=== PATIENT | male | born 1970 | race Caucasian/White ===

== ENCOUNTER 2021-07-18 09:50 | Emergency (ER) | payer MEDICARE, MEDICAID ==
--- NOTE | 2021-07-18 10:55 | EDM.PDOC ---
ED HPI GENERAL MEDICAL PROBLEM - General Chief Complaint: Back Pain or Injury Stated Complaint: R SIDE RIBS HURT Time Seen by Provider: 07/18/21 10:30 Source of Information: Reports: Patient History Limitations: Reports: No Limitations - History of Present Illness INITIAL COMMENTS - FREE TEXT/NARRATIVE: 51-year-old male with right-sided chest and flank pain since falling 4 days ago. He was seen in [place] ER, according to the patient they did a chest x-ray but they never told him what they found, they just "rushed him out because they were so busy". He called his primary doctor today and he recommended he come up to [place] to be seen. He has chronic shortness of breath, nothing new. No other traumatic injury. He has chronic knee pain for which he is on gabapentin. Onset: Sudden Duration: Day(s): (4 days ago) Location: Reports: Back (Right flank area) Improves with: Reports: Rest Worsens with: Reports: Breathing, Movement Associated Symptoms: Reports: Shortness of Breath (Shortness of breath is chronic and stable). Denies: Fever/Chills, Headaches, Nausea/Vomiting right rib Pain Score (Numeric/FACES): 8 - Related Data Allergies Allergy/AdvReac Type Severity Reaction Status Date / Time No Known Allergies Allergy Verified 07/18/21 10:03 Home Meds: Home Meds Benztropine [Cogentin] 1 mg PO BEDTIME 07/18/21 [History] Gabapentin [Neurontin] 800 mg PO TID 07/18/21 [History] Mirtazapine 30 mg PO BEDTIME 07/18/21 [History] Prazosin [Minpress] 10 mg PO BEDTIME 07/18/21 [History] QUEtiapine Fumarate [Seroquel] 100 mg PO BEDTIME 07/18/21 [History] carBAMazepine [Carbamazepine] 200 mg PO TID 07/18/21 [History] haloperidoL [Haldol] 1 mg PO TID 07/18/21 [History] traZODone 150 mg PO BEDTIME 07/18/21 [History] Past Medical History Respiratory History: Reports: Asthma, Bronchitis, Recurrent Psychiatric History: Reports: Anxiety, Bipolar, Schizophrenia - Infectious Disease History Infectious Disease History: Reports: Chicken Pox - Past Surgical History Musculoskeletal Surgical History: Reports: Other (See Below) Other Musculoskeletal Surgeries/Procedures:: left knee and right foot surgery Social & Family History - Tobacco Use Tobacco Use Status *Q: Current Every Day Tobacco User Years of Tobacco use: 30 Packs/Tins Daily: 1 - Recreational Drug Use Recreational Drug Use: No ED ROS GENERAL - Review of Systems Review Of Systems: See Below Constitutional: Denies: Fever, Chills HEENT: Denies: Throat Pain, Vision Change Respiratory: Reports: Shortness of Breath. Denies: Cough Cardiovascular: Reports: Chest Pain (Pleuritic pain right back) GI/Abdominal: Denies: Abdominal Pain, Nausea, Vomiting Skin: Denies: Bruising Neurological: Denies: Headache ED EXAM, GENERAL - Physical Exam Exam: See Below Exam Limited By: No Limitations General Appearance: Alert, No Apparent Distress Eye Exam: Bilateral Eye: Normal Inspection Head: Atraumatic Neck: Supple, Non-Tender Respiratory/Chest: Other (Patient has some chronic sounding diffuse rales bilaterally. Chest wall is very tender over the right flank, no crepitus) Cardiovascular: Regular Rate, Rhythm GI/Abdominal: Normal Bowel Sounds, Soft, Non-Tender Extremities: No: Pedal Edema Neurological: Alert, Oriented Psychiatric: Normal Affect, Normal Mood Course - Vital Signs Last Recorded V/S: Last Vital Signs Temp 97.3 F 07/18/21 10:05 Pulse 78 07/18/21 10:05 Resp 16 07/18/21 10:05 BP 142/73 H 07/18/21 10:05 Pulse Ox 92 L 07/18/21 10:05 - Re-Assessments/Exams Free Text/Narrative Re-Assessment/Exam: 07/18/21 12:[address] without contrast was done which showed a 9 and 10th nondisplaced rib fracture on the right side. Underlying lung showed chronic changes. Patient was reassured that this should improve, he can increase activity as tolerated. Continue with anti-inflammatories such as ibuprofen, he was given 10 hydrocodone to use for extra pain control. A [employer] search was done and he has not had narcotics in the last 8 months. I also recommended a topical Lidoderm patch may be beneficial. Departure - Departure Time of Disposition: 12:39 Disposition: Home, Self-Care 01 Clinical Impression: Closed rib fracture Qualifiers: Encounter type: initial encounter Rib fracture type: multiple ribs Laterality: right Qualified Code(s): S22.41XA - Multiple fractures of ribs, right side, initial encounter for closed fracture - Discharge Information Instructions: Rib Fracture Referrals: PCP,None [Primary Care Provider] - Forms: ED Department Discharge Care Plan Goals: Continue with a regular dose of ibuprofen, your gabapentin, and take 1 stronger pain pill as directed if needed every 4 hours. Increase activity as tolerated and recheck next week if not improving satisfactorily. Sepsis Event Note (ED) - Evaluation Sepsis Screening Result: No Definite Risk - Focused Exam Vital Signs: Vital Signs Temp Pulse Resp BP Pulse Ox 07/18/21 10:05 97.3 F 78 16 142/73 H 92 L
--- NOTE | 2021-07-18 11:44 | CT ---
Chest wo Cont CLINICAL HISTORY: Right flank, TECHNIQUE: Thin section axial contiguous tomographic sections were taken through the chest without contrast administration. Coronal and sagittal images were reconstructed. Auto dosage reduction and iterative reconstruction techniques employed. FINDINGS: There are fractures of the right posterior lateral 10th and 11th ribs. There is some adjacent to the pleural thickening and/or minimal pleural fluid. Lungs are generally hyperaerated. There are scattered nodular foci in the right upper and lower lobes. There is some tree-in-bud formation and septal thickening. There is mild bronchiectasis and some diffuse bronchial thickening greater on the right. No mediastinal mass or lymphadenopathy is identified. IMPRESSION: Fractures of the right posterior lateral 10th and 11th ribs with some minimal regional pleural reaction Diffuse chronic lung changes bilaterally Micronodularity and tree-in-bud formation involving the right lung diffusely with bronchiectasis and bronchial thickening. This can represent chronic infection or atypical infections or chronic bronchiolitis. If clinically relevant high-resolution CT chest recommended on a nonemergent basis
== END 2021-07-18 12:40 | disposition home or self-care (01) ==
LOC: JP.ED 09:50
DX: S22.41XA Multiple fractures of ribs, right side, initial encounter for closed fracture (principal); Z72.0 Tobacco use; W18.09XA Striking against other object with subsequent fall, initial encounter
CPT/HCPCS: 71250; 71250-26; 99283-25

== ENCOUNTER 2022-12-07 08:21 | Day surgery (SDC) | payer MEDICARE, MEDICAID ==
[2022-12-07] MEDS ORDERED: fentaNYL 50 MCG/ML SDV ONE (08:27)
[2022-12-07] MEDS ORDERED: Midazolam 1 MG/ML 2 ML SDV ONE (08:27)
[2022-12-07] MEDS ORDERED: Propofol 200 MG/20 ML SDV ONE ×2 (08:27→09:48)
[2022-12-07] MEDS ORDERED: Lactated Ringers 1,000 ML IV SCH (08:45)
== END 2022-12-07 10:49 | disposition home or self-care (01) ==
LOC: JP.SDS 08:21
PROVIDERS: ATTEND Student in an Organized Health Care Education/Training Program
DX: K52.9 Noninfective gastroenteritis and colitis, unspecified (principal); K64.4 Residual hemorrhoidal skin tags; J44.9 Chronic obstructive pulmonary disease, unspecified; F17.200 Nicotine dependence, unspecified, uncomplicated; K21.9 Gastro-esophageal reflux disease without esophagitis; E78.00 Pure hypercholesterolemia, unspecified; F20.9 Schizophrenia, unspecified; Z79.899 Other long term (current) drug therapy
CPT/HCPCS: 45380; J2250; J2704; J3010; J7120

== ENCOUNTER 2023-08-05 20:06 | Emergency (ER) | payer MEDICARE, MEDICAID ==
[2023-08-05] MEDS ORDERED: predniSONE 20 MG Tab PO ONE (21:00)
[2023-08-05] MEDS ORDERED: Albuterol/Ipratropium 3.0-0.5 MG/3 ML Neb Soln NEB ONE (21:00)
[2023-08-05 21:12] LABS: BASE EXCESS VENOUS 2.9 mm/L; BASOPHILS ABSOLUTE AUTO 0.05 K/uL (0.00-0.10); BASOPHILS PERCENT AUTO 0.7 % (0.1-1.3); BICARBONATE,VENOUS 27.4 mmol/L; CARBOXYHEMOGLOBIN 6.3 % (0.0-1.6); EOSINOPHILS ABSOLUTE AUTO 0.19 K/uL (0.00-0.40); EOSINOPHILS PERCENT AUTO 2.8 % (0.0-5.4); HEMATOCRIT 33.1 % (38.4-49.7); HEMOGLOBIN 11.8 g/dL (12.9-16.9); IMMATURE GRAN ABSOLUTE AUTO 0.03 K/uL (0.00-0.23); IMMATURE GRAN PERCENT AUTO 0.4 % (0.0-0.7); LYMPHOCYTES ABSOLUTE AUTO 1.39 K/uL (0.8-3.3); LYMPHOCYTES PERCENT AUTO 20.8 % (11.4-47.7); MEAN CORPUSCULAR HEMOGLOBIN 33.5 pg (31.6-35.5); MEAN CORPUSCULAR HGB CONC 35.6 g/dL (31.6-35.5); METHEMOGLOBIN 0.9 %; MONOCYTES ABSOLUTE AUTO 0.62 K/uL (0.20-0.90); MONOCYTES PERCENT AUTO 9.3 % (3.3-12.6); NEUTROPHILS ABSOLUTE AUTO 4.39 K/uL (1.0-7.6); O2 SATURATION VENOUS 72.1; OXYHEMOGLOBIN 66.9 %; PCO2 VENOUS 44.1 mm/Hg; PH,VENOUS 7.411 (7.350-7.450); PLATELET COUNT,PLT 336 K/uL (130-375); PO2 VENOUS 40.6 mm/Hg; RED BLOOD CELL COUNT 3.52 M/uL (4.14-5.76); TOTAL HEMOGLOBIN 12.1 g/dL (13.5-18.0); WHITE BLOOD CELL COUNT,WBC 6.7 K/uL (3.2-11.0)
[2023-08-05 21:29] LABS: CALCIUM 9.2 mg/dL (8.5-10.1); EST CRCL DRUG DOSING (CG) 83.47 mL/min
[2023-08-05] MEDS ORDERED: Cefdinir 300 MG Cap PO ONE (21:32)
== END 2023-08-05 22:08 | disposition home or self-care (01) ==
LOC: JP.ED 20:06
DX: J44.1 Chronic obstructive pulmonary disease with (acute) exacerbation (principal); R09.02 Hypoxemia; E87.0 Hyperosmolality and hypernatremia; F17.210 Nicotine dependence, cigarettes, uncomplicated; Z79.899 Other long term (current) drug therapy
CPT/HCPCS: 36415; 71045; 80048; 82803; 83735; 85025; 93005; 94640; 99285; A9270; J7512; U0002; 93010; 99284; J7620

== ENCOUNTER 2023-11-24 09:42 | Inpatient (IN) | payer MEDICARE, MEDICAID ==
[2023-11-24 11:05] LABS: CORONAVIRUS COVID-19 NAA NEGATIVE (NEGATIVE); INFLUENZA A NAA NEGATIVE (NEGATIVE); INFLUENZA B NAA NEGATIVE (NEGATIVE); RESPIRATORY SYNCYTIAL VIR NAA NEGATIVE (NEGATIVE)
[2023-11-24 11:31] LABS: HEMOGLOBIN 11.8 g/dL (12.9-16.9); MEAN CORPUSCULAR HEMOGLOBIN 32.5 pg (31.6-35.5); MEAN CORPUSCULAR HGB CONC 35.8 g/dL (31.6-35.5); MEAN CORPUSCULAR VOLUME 90.9 fL (81.4-99.0); PLATELET COUNT,PLT 210 K/uL (130-375); RED BLOOD CELL COUNT 3.63 M/uL (4.14-5.76); WHITE BLOOD CELL COUNT,WBC 5.1 K/uL (3.2-11.0)
[2023-11-24 11:49] LABS: CALCIUM 8.9 mg/dL (8.5-10.1); CREATININE 0.8 mg/dL (0.8-1.3); EST CRCL DRUG DOSING (CG) 104.33 mL/min; POTASSIUM,K 3.9 mmol/L (3.6-5.2)
[2023-11-24 11:50] LABS: ANION GAP 10.9 mmol/L (5.0-14.0)
[2023-11-24 11:52] LABS: ALBUMIN 2.7 g/dL (3.4-5.0); MAGNESIUM 1.7 mg/dL (1.8-2.4); PHOSPHORUS 3.1 mg/dL (2.5-4.9)
[2023-11-24 12:03] LABS: BAND ABSOLUTE MAN 0.31 K/uL; BAND PERCENT MAN 6 % (5-11); LYMPHOCYTES ABSOLUTE MAN 1.68 K/uL (0.8-3.3); LYMPHOCYTES PERCENT MAN 33 % (24-44); MONOCYTES ABSOLUTE MAN 0.31 K/uL (0.20-0.90); MONOCYTES PERCENT MAN 6 % (2-6); NEUTROPHILS ABSOLUTE MAN 2.81 K/uL (1.0-7.6); SEG NEUTROPHILS PERCENT MAN 55 % (36-66)
[2023-11-24] MEDS ORDERED: predniSONE 20 MG Tab PO ONE (12:15)
[2023-11-24] MEDS ORDERED: Doxycycline 100 MG Cap PO ONE (12:16)
[2023-11-24] MEDS ORDERED: carBAMazepine 200 MG Tab PO ONE ×2 (14:20→15:30)
[2023-11-24] MEDS ORDERED: Gabapentin 400 MG Cap PO ONE (14:30)
[2023-11-24] MEDS ORDERED: Haloperidol 5 MG Tab PO ONE (14:30)
[2023-11-24] MEDS ORDERED: Ondansetron 4 MG/2 ML SDV IV PRN (14:36)
[2023-11-24] MEDS ORDERED: Sennosides/Docusate Sodium 50-8.6 MG Tab PO PRN (14:36)
[2023-11-24] MEDS ORDERED: Magnesium Hydroxide 400 MG/5 ML Susp 30 ML Cup PO PRN (14:36)
[2023-11-24] MEDS ORDERED: Acetaminophen 500 MG Tab PO PRN (14:36)
[2023-11-24] MEDS ORDERED: Nicotine 21 MG/24 Hr Patch TRDERM PRN (14:36)
[2023-11-24] MEDS ORDERED: Benzonatate 100 MG Cap PO PRN (14:36)
[2023-11-24] MEDS ORDERED: guaiFENesin/Dextromethorphan 100-10 MG/5 ML Soln 10 ML Cup PO PRN (14:36)
[2023-11-24] MEDS ORDERED: Albuterol 0.083% 2.5 MG/3 ML Neb Soln NEB PRN (14:36)
[2023-11-24] MEDS ORDERED: Ondansetron 4 MG Tab.DIS PO PRN (14:36)
[2023-11-24] MEDS: cefTRIAXone 1 GM in Sodium Chloride 0.9% 50 ML IV SCH (15:32)
[2023-11-24] MEDS: Magnesium Oxide 400 MG Tab PO SCH (15:34)
[2023-11-24] MEDS: Haloperidol 5 MG Tab PO SCH ×2 (15:34→20:47)
[2023-11-24] MEDS: Benztropine 1 MG Tab PO SCH (20:46)
[2023-11-24] MEDS: Lactobacillus Rhamnosus GG (Probiotic) Cap PO SCH (20:47)
[2023-11-24] MEDS: Formoterol/Mometasone 100-5 MCG 8.8 GM Inhaler IH SCH (20:47)
[2023-11-24] MEDS: QUETIAPINE PO SCH ×2 (20:51)
[2023-11-24] MEDS: Gabapentin 400 MG Cap PO SCH (20:51)
[2023-11-24] MEDS: carBAMazepine 200 MG Tab PO SCH (20:52)
[2023-11-24] MEDS: traZODone 50 MG Tab PO SCH (20:52)
[2023-11-24] MEDS ORDERED: Non-Formulary Medication 1 Each (Gabapentin [Neurontin] 800 MG Tablet) PO SCH (21:00)
[2023-11-24] MEDS ORDERED: Haloperidol 1 MG Tab PO SCH (21:00)
[2023-11-24] MEDS ORDERED: QUEtiapine 100 MG Tab PO SCH (21:00)
[2023-11-24] MEDS ORDERED: Non-Formulary Medication 1 Each (Fluticasone/Umeclidin/Vilanter [Trelegy Ellipta 200-62.5- IH SCH (21:00)
[2023-11-24] MEDS ORDERED: Non-Formulary Medication 1 Each (Trazodone [Trazodone] 150 MG Tablet) PO SCH (21:00)
[2023-11-24] MEDS: Doxycycline 100 MG Cap PO SCH (21:05)
[2023-11-25 06:17] LABS: HEMATOCRIT 32.2 % (38.4-49.7); HEMOGLOBIN 11.6 g/dL (12.9-16.9); MEAN CORPUSCULAR HEMOGLOBIN 32.4 pg (31.6-35.5); MEAN CORPUSCULAR VOLUME 89.9 fL (81.4-99.0); RED BLOOD CELL COUNT 3.58 M/uL (4.14-5.76); WHITE BLOOD CELL COUNT,WBC 4.5 K/uL (3.2-11.0)
[2023-11-25 06:27] LABS: CALCIUM 8.3 mg/dL (8.5-10.1); CREATININE 0.8 mg/dL (0.8-1.3); EST CRCL DRUG DOSING (CG) 104.33 mL/min; POTASSIUM,K 3.8 mmol/L (3.6-5.2)
[2023-11-25 06:37] LABS: ANION GAP 12.8 mmol/L (5.0-14.0)
[2023-11-25] MEDS: Tiotropium Bromide 4 GM Inhalation Spray (2.5mcg/1 dose; 10 doses) INH SCH (07:12)
[2023-11-25] MEDS: Formoterol/Mometasone 100-5 MCG 8.8 GM Inhaler IH SCH ×2 (07:12→21:24)
[2023-11-25] MEDS: predniSONE 20 MG Tab PO SCH (07:25)
[2023-11-25] MEDS: Magnesium Oxide 400 MG Tab PO SCH (08:36)
[2023-11-25] MEDS: Lactobacillus Rhamnosus GG (Probiotic) Cap PO SCH ×2 (08:36→21:26)
[2023-11-25] MEDS: Haloperidol 5 MG Tab PO SCH ×3 (08:36→21:26)
[2023-11-25] MEDS: Gabapentin 400 MG Cap PO SCH ×3 (08:36→21:27)
[2023-11-25] MEDS: QUETIAPINE PO SCH ×4 (08:36→21:28)
[2023-11-25] MEDS: carBAMazepine 200 MG Tab PO SCH ×3 (08:37→21:28)
[2023-11-25] MEDS: Doxycycline 100 MG Cap PO SCH ×2 (10:23→21:29)
[2023-11-25] MEDS: cefTRIAXone 1 GM in Sodium Chloride 0.9% 50 ML IV SCH (15:47)
[2023-11-25] MEDS: Benztropine 1 MG Tab PO SCH (21:26)
[2023-11-25] MEDS: traZODone 50 MG Tab PO SCH (21:29)
[2023-11-26] MEDS: Formoterol/Mometasone 100-5 MCG 8.8 GM Inhaler IH SCH (07:15)
[2023-11-26] MEDS: Tiotropium Bromide 4 GM Inhalation Spray (2.5mcg/1 dose; 10 doses) INH SCH (07:16)
[2023-11-26] MEDS: predniSONE 20 MG Tab PO SCH (07:41)
[2023-11-26] MEDS: Gabapentin 400 MG Cap PO SCH (08:16)
[2023-11-26] MEDS: Haloperidol 5 MG Tab PO SCH (08:16)
[2023-11-26] MEDS: Lactobacillus Rhamnosus GG (Probiotic) Cap PO SCH (08:17)
[2023-11-26] MEDS: Magnesium Oxide 400 MG Tab PO SCH (08:17)
[2023-11-26] MEDS: carBAMazepine 200 MG Tab PO SCH (08:17)
[2023-11-26] MEDS: QUETIAPINE PO SCH ×2 (08:17)
[2023-11-26] MEDS: Doxycycline 100 MG Cap PO SCH (09:48)
== END 2023-11-26 11:07 | disposition home or self-care (01) | DRG 193 ==
LOC: JP.ED 09:42 → JP.ICU 14:23
PROVIDERS: ADMIT Internal Medicine; ATTEND Internal Medicine
DX: J18.9 Pneumonia, unspecified organism (principal); R09.02 Hypoxemia; R91.1 Solitary pulmonary nodule; J13 Pneumonia due to Streptococcus pneumoniae; J96.01 Acute respiratory failure with hypoxia; E87.1 Hypo-osmolality and hyponatremia; F20.0 Paranoid schizophrenia; J44.1 Chronic obstructive pulmonary disease with (acute) exacerbation; E78.5 Hyperlipidemia, unspecified; G31.84 Mild cognitive impairment of uncertain or unknown etiology; J43.9 Emphysema, unspecified; F17.210 Nicotine dependence, cigarettes, uncomplicated; K52.9 Noninfective gastroenteritis and colitis, unspecified; F41.9 Anxiety disorder, unspecified; D64.9 Anemia, unspecified; E88.09 Other disorders of plasma-protein metabolism, not elsewhere classified; R91.8 Other nonspecific abnormal finding of lung field; E83.42 Hypomagnesemia; F31.70 Bipolar disorder, currently in remission, most recent episode unspecified; Z79.899 Other long term (current) drug therapy; Z79.51 Long term (current) use of inhaled steroids; Z86.16 Personal history of COVID-19; Z11.52 Encounter for screening for COVID-19
CPT/HCPCS: 0241U; 36415; 71045; 71250; 80048; 82040; 83735; 83880; 84100; 84145; 85025; 85027; 86140; 87070; 87184; 87205; 94640; 94667; 94668; 99285; 87077; 99222; 99232; 99238; A9270-GY; J0696; J3490; J7512

== ENCOUNTER 2024-01-26 06:26 | Day surgery (SDC) | payer MEDICARE, MEDICAID ==
[2024-01-26] MEDS: Lactated Ringers 1,000 ML IV SCH (06:53)
[2024-01-26] MEDS ORDERED: fentaNYL 50 MCG/ML SDV ONE (07:07)
[2024-01-26] MEDS ORDERED: Midazolam 1 MG/ML 2 ML SDV ONE (07:07)
[2024-01-26] MEDS ORDERED: Propofol 200 MG/20 ML SDV ONE (07:07)
== END 2024-01-26 08:55 | disposition home or self-care (01) ==
LOC: JP.SDS 06:26
PROVIDERS: ATTEND Student in an Organized Health Care Education/Training Program
DX: K29.50 Unspecified chronic gastritis without bleeding (principal); K21.00 Gastro-esophageal reflux disease with esophagitis, without bleeding; K44.9 Diaphragmatic hernia without obstruction or gangrene; J44.9 Chronic obstructive pulmonary disease, unspecified; F17.200 Nicotine dependence, unspecified, uncomplicated
CPT/HCPCS: 43239; 88305; 88312; 88342; J2250; J2704; J3010; J7120

== ENCOUNTER 2024-05-03 06:58 | Day surgery (SDC) | payer MEDICARE, MEDICAID ==
[~2024-05-03 06:58] MED LIST: Dexamethasone 4 MG/ML SDV ONE; Glycopyrrolate 0.2 MG/ML 5 ML MDV ONE; Neostigmine Methylsulfate 10 MG/10 ML MDV ONE; Ondansetron 4 MG/2 ML SDV ONE; Propofol 200 MG/20 ML SDV ONE; Rocuronium 50 MG/5 ML Vial ONE; Ropivacaine 36 ML, dexAMETHasone 8 MG, EPINEPHrine 0.4 MG, Sodium Chloride 0.9% 41.6 ML NERVRT SCH; Sodium Chloride 0.9% 1,000 ML IV SCH; Succinylcholine 200 MG/10 ML MDV ONE; ceFAZolin 2 GM in Premix Bag 1 BAG IV ONE; fentaNYL 250 MCG/5 ML SDV ONE; metroNIDAZOLE/Normal Saline 500 MG in Premix Bag 1 BAG IV ONE
[2024-05-03] MEDS ORDERED: fentaNYL 250 MCG/5 ML SDV ONE ×2 (07:08→09:34)
[2024-05-03] MEDS ORDERED: Propofol 200 MG/20 ML SDV ONE (07:09)
[2024-05-03] MEDS ORDERED: Ondansetron 4 MG/2 ML SDV ONE (07:09)
[2024-05-03] MEDS ORDERED: Succinylcholine 200 MG/10 ML MDV ONE (07:09)
[2024-05-03] MEDS ORDERED: Neostigmine Methylsulfate 10 MG/10 ML MDV ONE (07:09)
[2024-05-03] MEDS ORDERED: Rocuronium 50 MG/5 ML Vial ONE (07:09)
[2024-05-03] MEDS ORDERED: Dexamethasone 4 MG/ML SDV ONE (07:09)
[2024-05-03] MEDS ORDERED: Glycopyrrolate 0.2 MG/ML 5 ML MDV ONE (07:09)
[2024-05-03 07:22] LABS: HEMATOCRIT 35.7 % (38.4-49.7); HEMOGLOBIN 12.8 g/dL (12.9-16.9); MEAN CORPUSCULAR HEMOGLOBIN 31.9 pg (31.6-35.5); MEAN CORPUSCULAR HGB CONC 35.9 g/dL (31.6-35.5); RED BLOOD CELL COUNT 4.01 M/uL (4.14-5.76); WHITE BLOOD CELL COUNT,WBC 6.7 K/uL (3.2-11.0)
[2024-05-03] MEDS: Sodium Chloride 0.9% 1,000 ML IV SCH (07:50)
[2024-05-03] MEDS: Albuterol/Ipratropium 3.0-0.5 MG/3 ML Neb Soln NEB ONE (08:18)
[2024-05-03] MEDS: ceFAZolin 2 GM in Premix Bag 1 BAG IV ONE (08:18)
[2024-05-03 08:27] LABS: ALANINE AMINOTRANSFERASE,ALT 21 U/L (12-78); ALBUMIN 3.6 g/dL (3.4-5.0); ALKALINE PHOSPHATASE 101 U/L (46-116); ASPARTATE AMNIOTRANSFERASE,AST 19 U/L (15-37); BILIRUBIN TOTAL 0.3 mg/dL (0.2-1.0); BLOOD UREA NITROGEN,BUN 8 mg/dL (7-18); CALCIUM 9.4 mg/dL (8.5-10.1); CARBON DIOXIDE,CO2 28 mmol/L (21-32); CHLORIDE,CL 93 mmol/L (100-108); CREATININE 0.9 mg/dL (0.8-1.3); EST CRCL DRUG DOSING (CG) 92.74 mL/min; ESTIMATED GFR 101 mL/min (>60); GLUCOSE RANDOM 89 mg/dL (74-106); PROTEIN TOTAL,TP 7.4 g/dL (6.4-8.2); SODIUM,NA 128 mmol/L (140-148)
[2024-05-03] MEDS: metroNIDAZOLE/Normal Saline 500 MG in Premix Bag 1 BAG IV ONE (09:02)
[2024-05-03] MEDS: Ropivacaine 35 ML, dexAMETHasone 8 MG, EPINEPHrine 0.4 MG, Sodium Chloride 0.9% 42.6 ML NERVRT SCH (09:41)
[2024-05-03] MEDS: Bupivacaine 0.5%/EPINEPHrine 1:200,000 50 ML MDV ONE (10:00)
[2024-05-03] MEDS: Lidocaine 1% 50 ML MDV ONE (10:00)
[2024-05-03] MEDS: Acetaminophen/HYDROcodone 325-5 MG Tab PO ONE (11:13)
== END 2024-05-03 11:29 | disposition home or self-care (01) ==
LOC: JP.SDS 06:58
PROVIDERS: ATTEND Surgery
DX: K43.9 Ventral hernia without obstruction or gangrene (principal); K21.9 Gastro-esophageal reflux disease without esophagitis; J44.9 Chronic obstructive pulmonary disease, unspecified; E78.5 Hyperlipidemia, unspecified; Z79.899 Other long term (current) drug therapy
CPT/HCPCS: 36415; 49591; 80053; 85027; 94640; A9270; C1713; C1781; J0171; J0330; J0690; J1100; J1596; J1836; J2001; J2405; J2704; J2710; J2795; J3010; J3490; J7030; 00840-QZ; J7620

== ENCOUNTER 2025-02-06 18:04 | Inpatient (IN) | payer MEDICARE, MEDICAID ==
[2025-02-06 18:22] LABS: BASE EXCESS ARTERIAL 2.5 mm/L; CARBOXYHEMOGLOBIN 8.2 % (0.0-1.6); OXYHEMOGLOBIN 77.2 %; PCO2 ARTERIAL 43.6 mmHg (35.0-42.0); PO2 ARTERIAL 51.7 mmHg (75.0-100.0); TOTAL HEMOGLOBIN 11.3 g/dL (13.5-18.0)
[2025-02-06 18:24] LABS: BASOPHILS ABSOLUTE AUTO 0.05 K/uL (0.00-0.10); BASOPHILS PERCENT AUTO 0.3 % (0.1-1.3); EOSINOPHILS ABSOLUTE AUTO 0.04 K/uL (0.00-0.40); EOSINOPHILS PERCENT AUTO 0.3 % (0.0-5.4); HEMATOCRIT 32.5 % (38.4-49.7); HEMOGLOBIN 11.4 g/dL (12.9-16.9); IMMATURE GRAN ABSOLUTE AUTO 0.04 K/uL (0.00-0.23); IMMATURE GRAN PERCENT AUTO 0.3 % (0.0-0.7); LYMPHOCYTES ABSOLUTE AUTO 0.84 K/uL (0.8-3.3); LYMPHOCYTES PERCENT AUTO 5.9 % (11.4-47.7); MEAN CORPUSCULAR HEMOGLOBIN 31.6 pg (31.6-35.5); MEAN CORPUSCULAR HGB CONC 35.1 g/dL (31.6-35.5); MONOCYTES ABSOLUTE AUTO 1.18 K/uL (0.20-0.90); MONOCYTES PERCENT AUTO 8.2 % (3.3-12.6); NEUTROPHILS ABSOLUTE AUTO 12.16 K/uL (1.0-7.6); PLATELET COUNT,PLT 389 K/uL (130-375); RED BLOOD CELL COUNT 3.61 M/uL (4.14-5.76); WHITE BLOOD CELL COUNT,WBC 14.3 K/uL (3.2-11.0)
[2025-02-06 18:55] LABS: A/G RATIO 0.9 (1.2-2.2); ALANINE AMINOTRANSFERASE,ALT 14 U/L (12-78); ALBUMIN 3.3 g/dL (3.4-5.0); ALKALINE PHOSPHATASE 113 U/L (46-116); ANION GAP 13.7 mmol/L (5.0-14.0); ASPARTATE AMNIOTRANSFERASE,AST 11 U/L (15-37); BILIRUBIN TOTAL 0.2 mg/dL (0.2-1.0); BLOOD UREA NITROGEN,BUN 9 mg/dL (7-18); C-REACTIVE PROTEIN 4.68 mg/dL (<0.50); CALCIUM 9.7 mg/dL (8.5-10.1); CARBON DIOXIDE,CO2 29 mmol/L (21-32); CHLORIDE,CL 91 mmol/L (100-108); CREATININE 0.8 mg/dL (0.8-1.3); ESTIMATED GFR 104 mL/min (>60); GLUCOSE RANDOM 118 mg/dL (74-106); POTASSIUM,K 4.7 mmol/L (3.6-5.2); SODIUM,NA 129 mmol/L (140-148)
[2025-02-06] MEDS: Albuterol/Ipratropium 3.0-0.5 MG/3 ML Neb Soln NEB ONE (19:07)
[2025-02-06] MEDS ORDERED: Sodium Chloride 0.9% 80 ML IV SCH (20:00)
[2025-02-06] MEDS ORDERED: Iopamidol 612 MG/ML 100 ML Bottle IV SCH (20:00)
[2025-02-06] MEDS: Doxycycline 100 MG Cap PO ONE (20:07)
[2025-02-06] MEDS: cefTRIAXone 2 GM in Sodium Chloride 0.9% 50 ML IV ONE (20:07)
[2025-02-07] MEDS ORDERED: Acetaminophen 325 MG Tab PO PRN (00:32)
[2025-02-07] MEDS ORDERED: Albuterol 0.083% 2.5 MG/3 ML Neb Soln NEB PRN (00:32)
[2025-02-07] MEDS ORDERED: Melatonin 3 MG Tab PO PRN (00:32)
[2025-02-07] MEDS ORDERED: Ondansetron 4 MG Tab.DIS PO PRN (00:32)
[2025-02-07] MEDS ORDERED: Sennosides/Docusate Sodium 50-8.6 MG Tab PO PRN (00:32)
[2025-02-07] MEDS ORDERED: Ondansetron 4 MG/2 ML SDV IV PRN (00:32)
[2025-02-07] MEDS: Sucralfate 1 GM Tab PO SCH (01:00)
[2025-02-07] MEDS: carBAMazepine 200 MG Tab PO SCH (01:00)
[2025-02-07] MEDS: Haloperidol 1 MG Tab PO SCH (01:02)
[2025-02-07] MEDS: Nicotine 21 MG/24 Hr Patch TRDERM SCH (02:38)
[2025-02-07 05:59] LABS: HEMATOCRIT 33.5 % (38.4-49.7); HEMOGLOBIN 11.6 g/dL (12.9-16.9); MEAN CORPUSCULAR HEMOGLOBIN 30.9 pg (31.6-35.5); MEAN CORPUSCULAR HGB CONC 34.6 g/dL (31.6-35.5); MEAN CORPUSCULAR VOLUME 89.3 fL (81.4-99.0); RED BLOOD CELL COUNT 3.75 M/uL (4.14-5.76); WHITE BLOOD CELL COUNT,WBC 11.6 K/uL (3.2-11.0)
[2025-02-07] MEDS ORDERED: Albuterol/Ipratropium 3.0-0.5 MG/3 ML Neb Soln NEB SCH (06:00)
[2025-02-07 06:12] LABS: CALCIUM 9.2 mg/dL (8.5-10.1); CREATININE 0.7 mg/dL (0.8-1.3); EST CRCL DRUG DOSING (CG) 117.83 mL/min; POTASSIUM,K 4.6 mmol/L (3.6-5.2)
[2025-02-07 06:14] LABS: ANION GAP 13.6 mmol/L (5.0-14.0)
[2025-02-07] MEDS ORDERED: Tiotropium Bromide 4 GM Inhalation Spray (2.5mcg/1 dose; 10 doses) INH SCH (07:00)
[2025-02-07] MEDS: Albuterol/Ipratropium 3.0-0.5 MG/3 ML Neb Soln NEB SCH (07:39)
[2025-02-07] MEDS: Pantoprazole 40 MG Tab.CR PO SCH (08:10)
[2025-02-07] MEDS: Lactobacillus Rhamnosus GG (Probiotic) Cap PO SCH (08:11)
[2025-02-07] MEDS: Haloperidol 5 MG Tab PO SCH (08:11)
[2025-02-07] MEDS: predniSONE 20 MG Tab PO SCH (08:11)
[2025-02-07] MEDS: Psyllium Husk Powder Sugar Free 5.85 GM Packet PO SCH (08:12)
[2025-02-07] MEDS: QUEtiapine 100 MG Tab PO SCH (08:12)
[2025-02-07] MEDS: Sodium Chloride 1 GM Tab PO SCH ×2 (08:12→13:54)
[2025-02-07] MEDS: Gabapentin 400 MG Cap PO SCH (08:12)
[2025-02-07] MEDS: Doxycycline 100 MG Cap PO SCH (08:13)
[2025-02-07] MEDS: Formoterol/Mometasone 200-5 MCG 8.8 GM Inhaler IH SCH (08:17)
[2025-02-07] MEDS: Tiotropium Bromide 4 GM Inhalation Spray (2.5mcg/1 dose; 10 doses) INH SCH (08:18)
[2025-02-07] MEDS ORDERED: Formoterol/Mometasone 100-5 MCG 8.8 GM Inhaler IH SCH (09:00)
[2025-02-07] MEDS: ClonazePAM 0.5 MG Tab PO SCH (10:09)
[2025-02-07] MEDS: traZODone 50 MG Tab PO SCH (20:18)
[2025-02-07] MEDS: cefTRIAXone 1 GM in Sodium Chloride 0.9% 50 ML IV SCH (20:19)
[2025-02-07] MEDS: Benztropine 1 MG Tab PO SCH (20:20)
[2025-02-08 06:03] LABS: BASOPHILS PERCENT AUTO 0.2 % (0.1-1.3); EOSINOPHILS PERCENT AUTO 0.2 % (0.0-5.4); HEMATOCRIT 31.9 % (38.4-49.7); HEMOGLOBIN 10.9 g/dL (12.9-16.9); IMMATURE GRAN ABSOLUTE AUTO 0.04 K/uL (0.00-0.23); IMMATURE GRAN PERCENT AUTO 0.4 % (0.0-0.7); LYMPHOCYTES ABSOLUTE AUTO 1.91 K/uL (0.8-3.3); LYMPHOCYTES PERCENT AUTO 18.4 % (11.4-47.7); MEAN CORPUSCULAR HEMOGLOBIN 31.1 pg (31.6-35.5); MEAN CORPUSCULAR HGB CONC 34.2 g/dL (31.6-35.5); MEAN CORPUSCULAR VOLUME 91.1 fL (81.4-99.0); MONOCYTES ABSOLUTE AUTO 0.91 K/uL (0.20-0.90); MONOCYTES PERCENT AUTO 8.8 % (3.3-12.6); NEUTROPHILS ABSOLUTE AUTO 7.48 K/uL (1.0-7.6); PLATELET COUNT,PLT 391 K/uL (130-375); WHITE BLOOD CELL COUNT,WBC 10.4 K/uL (3.2-11.0)
[2025-02-08 06:11] LABS: BASOPHILS ABSOLUTE AUTO 0.02 K/uL (0.00-0.10); EOSINOPHILS ABSOLUTE AUTO 0.02 K/uL (0.00-0.40)
[2025-02-08 06:29] LABS: A/G RATIO 0.8 (1.2-2.2); ALANINE AMINOTRANSFERASE,ALT 12 U/L (12-78); ALBUMIN 2.8 g/dL (3.4-5.0); ALKALINE PHOSPHATASE 90 U/L (46-116); ASPARTATE AMNIOTRANSFERASE,AST 8 U/L (15-37); BILIRUBIN TOTAL 0.1 mg/dL (0.2-1.0); BLOOD UREA NITROGEN,BUN 15 mg/dL (7-18); CALCIUM 9.3 mg/dL (8.5-10.1); CARBON DIOXIDE,CO2 30 mmol/L (21-32); CHLORIDE,CL 100 mmol/L (100-108); CREATININE 0.8 mg/dL (0.8-1.3); ESTIMATED GFR 104 mL/min (>60); GLUCOSE RANDOM 94 mg/dL (74-106); POTASSIUM,K 4.1 mmol/L (3.6-5.2); PROTEIN TOTAL,TP 6.4 g/dL (6.4-8.2); SODIUM,NA 136 mmol/L (140-148)
[2025-02-08 06:30] LABS: ANION GAP 10.1 mmol/L (5.0-14.0)
[2025-02-08] MEDS: Psyllium Husk Powder Sugar Free 5.85 GM Packet PO SCH (08:22)
== END 2025-02-08 14:15 | DRG 193 ==
LOC: JP.ED 18:04 → JP.MS 02-07 00:05
PROVIDERS: ADMIT Registered Nurse; ATTEND Hospitalist
DX: J18.9 Pneumonia, unspecified organism (principal); J96.01 Acute respiratory failure with hypoxia; J44.1 Chronic obstructive pulmonary disease with (acute) exacerbation; F17.210 Nicotine dependence, cigarettes, uncomplicated; E87.1 Hypo-osmolality and hyponatremia; J44.0 Chronic obstructive pulmonary disease with (acute) lower respiratory infection; R51.9 Headache, unspecified; G89.29 Other chronic pain; F41.9 Anxiety disorder, unspecified; F43.10 Post-traumatic stress disorder, unspecified; F20.9 Schizophrenia, unspecified; F31.70 Bipolar disorder, currently in remission, most recent episode unspecified; H54.7 Unspecified visual loss; Z98.890 Other specified postprocedural states; Z86.16 Personal history of COVID-19; Z72.0 Tobacco use; Z79.899 Other long term (current) drug therapy
CPT/HCPCS: 36415; 36600; 71045; 71045-26; 80048; 80053; 82803; 83605; 84484; 85025; 85027; 86140; 87040; 87070; 87205; 87428-QW; 93005; 93010; 94640; 96365; 99222; 99232; 99239; 99285; 99285-25; A9270-GY; J0696; J7512